=== PATIENT | female | born 1970 | race Caucasian/White ===

== ENCOUNTER 2018-04-21 16:42 | Inpatient (IN) | payer BC, MEDICAID, OTHER ==
[~2018-04-21] VITALS: Ht 162.6 cm; Wt 110.9 kg
[~2018-04-21 16:42] MED LIST: ALBU6.7H INH; AZIT250T89 PO; CEFD300C37 PO; GABA-826 PO; IPRA3AMP30 NPPB; POLY10DR3 EACHEYE; PRED20TA PO; RISP1TAB3 PO; TRAZ300T2 PO
[2018-04-21] MEDS ORDERED: ALBUTEROL/IPRATROPIUM 2.5MG/0.5MG, 3 ML NPPB SCH (17:00)
[2018-04-21] MEDS ORDERED: ALBUTEROL/IPRATROPIUM 2.5MG/0.5MG, 3 ML ONE (17:05)
[2018-04-21] MEDS ORDERED: methylPREDNISolone SOD SUCC 125 MG/2 ML ONE (17:15)
--- NOTE | 2018-04-21 17:22 | NUR ---
PT ARRIVES TOE D WITH C/O OF RESP DISRTESS. PT IN ROOM IS POSTURING AND 82% ON RA. PT REPORTS HX OF COPD.PT ONLY ABLE TO SPEAK IN 2-3 WORD SENTANCES. RT PAGED FOR TREATMENT. PT HAS EXPIRATORY WHEEZING THROUGHOUT LUNGS. PT DOES NOT USE HOME 02 ANS SMOKES ABOUT 1 PACK A DAY. PT IS A/O X 4 AND VSS AT THIS TIME. PIV PLACED AND MEDICATED PER EMAR. AWIATING FURTHER ORDERS.
[2018-04-21 17:45] LABS: BASOPHILS # (AUTO) 0.17 x10^3/uL (0-0.1); BASOPHILS % (AUTO) 1 % (0-1); EOSINOPHILS # (AUTO) 0.38 x10^3/uL (0-0.4); EOSINOPHILS % (AUTO) 3 % (1-7); LYMPHOCYTES # (AUTO) 1.99 x10^3/uL (1-3.4); LYMPHOCYTES % (AUTO) 17 % (22-44); MD NO; MEAN CORPUSCULAR HEMOGLOBIN 32.3 pg (27.0-34.8); MEAN CORPUSCULAR HGB CONC 33.4 g/dL (32.4-35.8); MEAN CORPUSCULAR VOLUME 96.7 fL (80-100); MEAN PLATELET VOLUME 7.8 fL (7.4-10.4); MONOCYTES # (AUTO) 0.86 x10^3/uL (0.2-0.8); MONOCYTES % (AUTO) 7 % (2-9); NEUTROPHILS # (AUTO) 8.49 x10^3/uL (1.8-6.8); NEUTROPHILS % (AUTO) 71 % (42-75); PLATELET COUNT 235 x10^3/uL (130-400); RED BLOOD COUNT 5.21 x10^6/uL (3.82-5.3); RED CELL DISTRIBUTION WIDTH 14.6 % (9.6-15.2)
--- NOTE | 2018-04-21 17:46 | NUR ---
PT REPORT FROM MINA Loco RN. PT CARE TO BE ASSUMED.
--- NOTE | 2018-04-21 17:51 | NUR ---
PT SITTING QUIETLY ON BED, WATCHING TV. REPORT "GREAT" IMPROVEMENT IN BREATHING. SPEECH CLEAR, SKIN WNL. CARDIAC & VS MONITORING CONTINUES. MONITOR: NSR.
--- NOTE | 2018-04-21 17:55 | NUR ---
LS: EXP WHEEZES ALL [place]. PT ABLE TO SPEAK IN COMPLETE SENTENCES.
[2018-04-21 17:56] LABS: ALBUMIN 3.7 g/dL (3.4-5.0); ANION GAP 7 mmol/L (5-15); CALCIUM 9.1 mg/dL (8.5-10.1); CHLORIDE 108 mmol/L (98-107); CREATININE 0.96 mg/dL (0.55-1.02)
[2018-04-21 18:00] LABS: TROPONIN I < 0.015 ng/mL (0.000-0.045)
--- NOTE | 2018-04-21 18:21 | NUR ---
DR MUIR BS FOR EXAM
--- NOTE | 2018-04-21 20:07 | NUR ---
[facility] PROVIDER IN PT ROOM. PT REPORT TO SOREN ALVAREZ FOR ROOM [id number].
[2018-04-21] MEDS ORDERED: LABETALOL 5MG/ML, 20ML IVPush PRN (20:30)
[2018-04-21] MEDS ORDERED: IBUPROFEN 600 MG TABLET PO PRN (20:30)
[2018-04-21] MEDS ORDERED: ACETAMINOPHEN 325 MG TABLET PO PRN (20:30)
[2018-04-21] MEDS ORDERED: NICOTINE 7 MG/24 HR PATCH.TD24 TD SCH (20:30)
[2018-04-21] MEDS ORDERED: TRAZODONE 150MG TABLET PO SCH (21:00)
[2018-04-21 21:37] VITALS: BP 138/77
[2018-04-21] MEDS: HEPARIN 5,000 UNITS/ML, 1ML SQ SCH (22:01)
[2018-04-21] MEDS: ALBUTEROL/IPRATROPIUM 2.5MG/0.5MG, 3 ML NPPB SCH (22:15)
[2018-04-22 01:30] VITALS: BP 121/75
[2018-04-22] MEDS: ALBUTEROL/IPRATROPIUM 2.5MG/0.5MG, 3 ML NPPB SCH ×4 (03:00→14:27)
[2018-04-22 04:38] LABS: BASOPHILS # (AUTO) 0.11 x10^3/uL (0-0.1); BASOPHILS % (AUTO) 1 % (0-1); EOSINOPHILS # (AUTO) 0.01 x10^3/uL (0-0.4); EOSINOPHILS % (AUTO) 0 % (1-7); LYMPHOCYTES # (AUTO) 1.22 x10^3/uL (1-3.4); LYMPHOCYTES % (AUTO) 11 % (22-44); MD NO; MEAN CORPUSCULAR HGB CONC 33.5 g/dL (32.4-35.8); MEAN CORPUSCULAR VOLUME 95.6 fL (80-100); MEAN PLATELET VOLUME 7.9 fL (7.4-10.4); MONOCYTES # (AUTO) 0.48 x10^3/uL (0.2-0.8); MONOCYTES % (AUTO) 5 % (2-9); NEUTROPHILS # (AUTO) 8.86 x10^3/uL (1.8-6.8); NEUTROPHILS % (AUTO) 83 % (42-75); PLATELET COUNT 290 x10^3/uL (130-400); RED BLOOD COUNT 5.19 x10^6/uL (3.82-5.3); RED CELL DISTRIBUTION WIDTH 14.2 % (9.6-15.2)
[2018-04-22] MEDS: HEPARIN 5,000 UNITS/ML, 1ML SQ SCH ×2 (05:50→14:00)
[2018-04-22 08:26] VITALS: BP 112/74
[2018-04-22] MEDS ORDERED: BUDESONIDE 0.5 MG/2 ML INHA INH SCH (09:00)
[2018-04-22] MEDS ORDERED: RISPERIDONE 1 MG TABLET PO SCH (09:00)
[2018-04-22] MEDS ORDERED: TIOT18CA INH (09:14)
[2018-04-22] MEDS ORDERED: BUDE0.5A INH (09:14)
[2018-04-22] MEDS ORDERED: PRED20TA PO (09:14)
[2018-04-22 12:40] VITALS: BP 132/88
== END 2018-04-22 17:30 | disposition home or self-care (01) | DRG 192 ==
LOC: ED 19:26 → EDIP 19:44 → 3NW 20:20
PROVIDERS: ADMIT Internal Medicine; ATTEND Internal Medicine
DX: J44.1 Chronic obstructive pulmonary disease with (acute) exacerbation (principal); G47.00 Insomnia, unspecified; F17.200 Nicotine dependence, unspecified, uncomplicated; M79.7 Fibromyalgia; F31.9 Bipolar disorder, unspecified; F32.9 Major depressive disorder, single episode, unspecified; R09.02 Hypoxemia; G62.9 Polyneuropathy, unspecified; Z83.3 Family history of diabetes mellitus; Z87.01 Personal history of pneumonia (recurrent); Z99.81 Dependence on supplemental oxygen; Z88.5 Allergy status to narcotic agent; Z82.5 Family history of asthma and other chronic lower respiratory diseases
CPT/HCPCS: 36415; J7620; J7626; 71045; 80048; 82040; 84484; 85025; 93005; 94640; 99285; G0378; J1644; J7512